=== PATIENT | male | born 1995 | race Caucasian/White ===

== ENCOUNTER 2021-09-20 11:45 | Observation (INO) | payer BC ==
[~2021-09-20] VITALS: Ht 172.7 cm; Wt 90.0 kg
[2021-09-20 12:13] LABS: COLLECTION METHOD CLEAN CATCH
[2021-09-20 12:18] LABS: MUCOUS Present (NOT PRESENT); PH 6 (5-8); SQUAMOUS EPITHELIAL 0-2 /hpf (0-10); URINE APPEARANCE Clear (CLEAR/HAZY); URINE BACTERIA None Seen /hpf (NONE SEEN); URINE BILIRUBIN Negative (NEGATIVE); URINE BLOOD Negative (NEGATIVE); URINE COLOR Yellow (YELLOW); URINE GLUCOSE Negative (NEGATIVE); URINE KETONE Negative (NEGATIVE); URINE LEUKOCYTE ESTERASE Negative (NEGATIVE); URINE NITRATE Negative (NEGATIVE); URINE PROTEIN(semi-quant) Negative (NEGATIVE); URINE RBC 0-2 /hpf (0-2); URINE UROBILINOGEN Negative (NEGATIVE)
[2021-09-20 12:44] LABS: BASO # 0.1 K/mm3 (0.0-0.2); BASO % 0.5 % (0.0-2.0); EOS # 0.1 K/mm3 (0.0-0.7); HEMATOCRIT 43.3 % (42.0-52.0); HEMOGLOBIN 14.7 g/dl (13.5-18.0); LYMPH # 2.3 K/mm3 (1.2-3.4); LYMPH % 24.2 % (20.0-51.0); MEAN CELL VOLUME 87 fl (80.0-100.0); MEAN CORPUSCULAR HEMOGLOBIN 30 pg (27-31); MEAN CORPUSCULAR HGB CONC 34 g/dl (33.0-37.0); MEAN PLATELET VOLUME 10.1 fl (7.4-10.4); MONO # 0.9 K/mm3 (0.1-0.6); PLATELET COUNT 319 K/mm3 (130-400); RED BLOOD COUNT 4.98 M/mm3 (4.20-5.60); REDCELL DISTRIBUTION WIDTH-CV 12.9 % (11.5-14.5)
[2021-09-20 12:57] LABS: ALBUMIN 4.2 gm/dL (3.5-5.0); BILIRUBIN,TOTAL 0.6 mg/dL (0.2-1.2); C-REACTIVE PROTEIN 3.48 mg/dL (0.00-0.50); CALCIUM 9.7 mg/dL (8.4-10.2); CREATININE, serum 1.12 mg/dL (0.72-1.25); TOTAL PROTEIN 8.4 gm/dL (6.2-8.1)
[2021-09-20] MEDS ORDERED: NORCO 325 MG-51 TAB PO (14:55)
[2021-09-20 16:12] VITALS: BP 126/66; PULSE 75; TEMP 98
[2021-09-20 16:23] VITALS: TEMP 98
--- NOTE | 2021-09-20 16:30 | NUR ---
PATIENT ALERT AND ORIENTED. ARRIVED FROM PACU. 3 SITES TO ABDOMEN WITH GLUE. TOLERATING LIQUIDS. ORDERED FIRST MEAL. NO PAIN. NO CONCERNS.
[2021-09-20 16:42] VITALS: BP 128/63; PULSE 66
[2021-09-20 17:12] VITALS: BP 123/64; PULSE 72
== END 2021-09-20 18:02 | disposition home or self-care (01) ==
LOC: COL.ER 11:45 → SURG 13:27
PROVIDERS: Nurse Practitioner; ADMIT Surgery
DX: K35.80 Unspecified acute appendicitis (principal)
CPT/HCPCS: G0378; J1100; J1170; J1200; J1885; J2405; J2543; J2704; J3010; J7030; Q9967